=== PATIENT | female | born 1990 | race American Indian/Alaskan Native ===

== ENCOUNTER 2021-08-21 18:08 | Emergency (ER) | payer SELFPAY ==
[2021-08-21] MEDS: BACITRACIN ZINC OINT 28.4 GM TP ONE (18:35)
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
[2021-08-21 19:02] VITALS: BP 125/76
== END 2021-08-21 19:02 | disposition home or self-care (01) ==
LOC: ED 18:08
DX: T21.11XD Burn of first degree of chest wall, subsequent encounter (principal); J45.909 Unspecified asthma, uncomplicated; X58.XXXD Exposure to other specified factors, subsequent encounter; Z79.899 Other long term (current) drug therapy; Z98.890 Other specified postprocedural states
CPT/HCPCS: 99282